=== PATIENT | male | born 1980 | race African-American/Black ===

== ENCOUNTER → 2018-09-05 | Outpatient (CLI) | payer OTHER ==
--- NOTE | 2018-09-05 10:47 | RADIOLOGY REPORT (SQ) ---
EXAM DESCRIPTION: MRI RT UPPER JOINT WITHOUT COMPLETED DATE/TIME: 09/05/2018 9:39 am REASON FOR STUDY: PAIN IN RIGHT SHOULDER M25.511 PAIN IN RIGHT SHOULDER COMPARISON: None. TECHNIQUE: Right shoulder images acquired and stored on PACS. Multiplanar imaging to include fat sen sitive sequences such as T1, water sensitive sequences such as FST2/STIR, cartilage sensitive sequenc es such as FSPD/gradient-echo sequences. LIMITATIONS: None. FINDINGS: BONE MARROW AND CORTEX: Old tacks in the posterior right humeral head axial images 5-8. N o marrow signal abnormality worrisome for occult fracture JOINT OR BURSAL EFFUSION: No large joint effusion. Trace fluid in the subacromial/subdeltoid bursa. GLENO-HUMERAL ARTICULATION: Normal articulation. No subluxation. No cystic change. No osteophytes or cartilage loss. ACROMION AND AC JOINT: Type 1 acromion with bulky acromioclavicular joint hypertrophy. No narrowing of the subacromial space. Trace fluid in the subacromial/subdeltoid bursa on sagittal T2 image 12 ROTATOR CUFF AND INTERVAL: There is mild increased signal along the undersurface of the distal infras pinatus on sagittal images 5-9. Mild increased signal in the distal subscapularis on sagittal images 5-9. No rotator interval tear. No rotator interval thickening to suggest adhesive capsulitis. LABRUM AND BICEPS LABRAL COMPLEX: Intact. No labral tear. Intra-articular long-head biceps tendon i s thickened and high signal as it enters the joint space on axial images 7-10 from tendinopathy. Dis valerie biceps in normal location in bicipital groove. REMAINDER OF LABRUM AND IGHL : No gross tear or paralabral cyst formation. Labral evaluation is less than optimal without joint distention. No thickening of IGHL to suggest adhesive capsulitis. PERIARTICULAR AND ADJACENT SOFT TISSUES: No masses or abnormal nodes. OTHER: No other significant finding. IMPRESSION: Tendinopathy along the distal infraspinatus and subscapularis tendon. Intra-articular long head biceps tendinopathy as it enters the joint Acromioclavicular joint hypertrophy with trace fluid in the subacromial/subdeltoid bursa TECHNICAL DOCUMENTATION: JOB ID: [id number] [email or web address]- All Rights Reserved Reading location - IP/workstation name: [email or web address]
== END ==
LOC: RAD 09:02
PROVIDERS: ATTEND Family Medicine
DX: M25.511 Pain in right shoulder (principal); M75.21 Bicipital tendinitis, right shoulder